=== PATIENT | male | born 1930 | race Caucasian/White ===

== ENCOUNTER 2017-11-11 10:44 | Day surgery (SDC) | payer OTHER, MEDICARE ==
[2017-11-05 10:19] VITALS: BMI 28.5
[2017-11-11] MEDS ORDERED: PROPOFOL 20 ML ONE ×3 (10:47→11:18)
[2017-11-11 11:20] VITALS: TEMP 97.2
[2017-11-11 15:33] VITALS: BP 127/88; PULSE 61
== END 2017-11-11 13:30 | disposition home or self-care (01) ==
LOC: FASU-ENDO 10:44
PROVIDERS: ATTEND Internal Medicine Gastroenterology
PROC: 0DJD8ZZ Inspection of Lower Intestinal Tract, Via Natural or Artificial Opening Endoscopic (ICD-10-PCS; principal; 2017-11-11 12:15)
DX: D64.9 Anemia, unspecified (principal); K63.5 Polyp of colon; K57.30 Diverticulosis of large intestine without perforation or abscess without bleeding

== ENCOUNTER 2019-06-04 14:56 | Emergency (ER) | payer OTHER, MEDICARE | END 2019-06-04 20:12 | disposition home or self-care (01) | LOC: JER 14:56 ==